=== PATIENT | female | born 1995 | race Caucasian/White ===

== ENCOUNTER 2017-01-01 16:41 | Emergency (ER) | payer OTHER ==
[~2017-01-01] VITALS: Ht 160 cm; Wt 51.7 kg
[2017-01-01 16:52] VITALS: BP 110/72
== END 2017-01-01 17:57 | disposition home or self-care (01) ==
LOC: ED 16:41
DX: N39.0 Urinary tract infection, site not specified (principal)

== ENCOUNTER 2017-01-30 13:35 | Emergency (ER) | payer OTHER | END 2017-01-30 14:12 | disposition left against medical advice (07) | LOC: ED 13:35 | DX: Z53.21 Procedure and treatment not carried out due to patient leaving prior to being seen by health care provider (principal) ==

== ENCOUNTER 2017-03-31 11:39 | Emergency (ER) | payer OTHER ==
[2017-03-31 12:54] LABS: BASOPHIL % 0.6 % (0-2); PLATELET COUNT 233 x10^3mcL (130-400); RED CELL DISTRIBUTION WIDTH 13.7 % (11.5-14.5)
[2017-03-31 13:08] LABS: CALCIUM 9.2 mg/dL (8.5-10.1); CARBON DIOXIDE 28.3 mmol/L (21-32); CHLORIDE SERUM 107 mmol/L (98-107); CREATININE SERUM 0.8 mg/dL (0.6-1.0); GFR1 > 60 mL/min; GLUCOSE SERUM 96 mg/dL (74-106); POTASSIUM SERUM 3.9 mmol/L (3.5-5.1); SODIUM SERUM 139 mmol/L (136-145)
[2017-03-31 13:12] LABS: ALKALINE PHOSPHATASE 74 U/L (46-116); ALT/SGPT 23 U/L (14-59); AST/SGOT 15 U/L (15-37); BILIRUBIN TOTAL 0.3 mg/dL (0.20-1.00); TOTAL PROTEIN, SERUM 7.2 g/dL (6.4-8.2)
[2017-03-31 15:50] VITALS: BP 114/72
== END 2017-03-31 15:50 | disposition home or self-care (01) ==
LOC: ED 11:39
PROVIDERS: Specialist
DX: K92.1 Melena (principal)
CPT/HCPCS: 36415; Q0092

== ENCOUNTER 2017-04-30 12:52 | Emergency (ER) | payer OTHER ==
[~2017-04-30] VITALS: Ht 162.6 cm; Wt 52.7 kg
[2017-04-30 12:57] VITALS: BP 112/68
== END 2017-04-30 14:46 | disposition left against medical advice (07) ==
LOC: ED 12:52
DX: Z53.21 Procedure and treatment not carried out due to patient leaving prior to being seen by health care provider (principal)